=== PATIENT | male | born 1945 | race Caucasian/White ===

== ENCOUNTER 2018-03-30 06:36 | Emergency (ER) | payer MEDICARE, OTHER ==
[2018-03-30] MEDS ORDERED: Acetaminophen/HYDROcodone 325-5 MG Tab ONE (07:00)
--- NOTE | 2018-03-30 07:40 | EDM.PDOC ---
ED HPI GENERAL MEDICAL PROBLEM - General Chief Complaint: General Stated Complaint: FELL Time Seen by Provider: 03/30/18 07:10 Source of Information: Reports: Patient History Limitations: Reports: No Limitations - History of Present Illness INITIAL COMMENTS - FREE TEXT/NARRATIVE: Pt is a 72 years old male with PMH of HTN. He woke up in the morning today and was using bathroom, slipped in the bathroom and fell backwards and hit hisleftflnk aginst the bath tub. C/o of severe pain in the left flank. hurts to take deep breath.No shortness of breath. no breathing difficulties. No nausez or vomiting. rates his pain at 8/10 with deep breathing. Onset: Today, Sudden Onset Date: 03/30/18 Onset Time: 18:00 Duration: Intermittent Location: Reports: Back Quality: Reports: Ache Severity: Severe Improves with: Reports: Rest Worsens with: Reports: Breathing Associated Symptoms: Denies: Confusion, Chest Pain, Cough, Diaphoresis, Fever/ Chills, Headaches, Malaise, Nausea/Vomiting, Rash, Seizure, Shortness of Breath , Syncope, Weakness Left Flank Pain Score (Numeric/FACES): 10 - Related Data Allergies Allergy/AdvReac Type Severity Reaction Status Date / Time No Known Allergies Allergy Verified 03/30/18 07:43 Home Meds: Home Meds Aspirin 81 mg PO DAILY 03/30/18 [History] Lisinopril 10 mg PO DAILY 03/30/18 [History] amLODIPine Besylate [Amlodipine Besylate] 5 mg PO DAILY 03/30/18 [History] atorvaSTATin Calcium [Atorvastatin Calcium] 40 mg PO DAILY 03/30/18 [History] metFORMIN HCl [Metformin HCl] 500 mg PO BID 03/30/18 [History] ED ROS GENERAL - Review of Systems Review Of Systems: See Below Constitutional: Denies: Fever, Chills HEENT: Denies: Rhinitis, Throat Pain Respiratory: Reports: Pleuritic Chest Pain. Denies: Shortness of Breath, Cough , Sputum Cardiovascular: Denies: Chest Pain, Lightheadedness Endocrine: Denies: Fatigue, High Glucose GI/Abdominal: Denies: Abdominal Pain, Distension, Nausea, Vomiting : Reports: Flank Pain. Denies: Dysuria, Frequency, Hematuria Musculoskeletal: Denies: Joint Pain, Joint Swelling Skin: Reports: Bruising. Denies: Pruritis, Rash Neurological: Denies: Confusion, Dizziness, Headache, Numbness, Tingling, Tremors, Change in Speech, Gait Disturbance ED EXAM, GENERAL - Physical Exam Exam: See Below Exam Limited By: No Limitations General Appearance: Alert, WD/WN, No Apparent Distress Eye Exam: Bilateral Eye: EOMI, PERRL Ears: Normal External Exam, Normal Canal, Hearing Grossly Normal, Normal TMs Ear Exam: Bilateral Ear: Auricle Normal, Canal Normal, TM normal Nose: Normal Inspection, Normal Mucosa, No Blood Throat/Mouth: Normal Inspection, Normal Lips, Normal Teeth, Normal Gums, Normal Oropharynx, Normal Voice, No Airway Compromise Head: Atraumatic, Normocephalic Neck: Normal Inspection, Supple, Non-Tender, Full Range of Motion Respiratory/Chest: No Respiratory Distress, Lungs Clear, Normal Breath Sounds, No Accessory Muscle Use, Other (there is superficial epidermal skin bruising noted over the left flank. tender over the posterior left 10,11th and 12 rib area.) Cardiovascular: Normal Peripheral Pulses, Regular Rate, Rhythm, No Edema, No Gallop, No JVD, No Murmur, No Rub Course - Vital Signs Text/Narrative:: Pt has had a fall directly over the left flank. He does appear to have chest wall contusion, will get rib series to evaluate for rib fracture. also he did receive dilaudid 1mg IM for pain. Also will get UA to rule out renal injury asso with fall. Pt rib series does show possible left 11th rib fracture. His UA is negative. Pt reassured that he has 11th rib fracture. Advised to alternate heat nd cold for 24hrs followed by intermittent heat 3-4 times daily. Alternate motrin 600mg with vicodin 5/325 every 4 hrs. rest. Deep breathing exercises 2-3 times daily. Followup with his primary care provider on sunday for recheck. Last Recorded V/S: Last Vital Signs Temp 98.7 F 03/30/18 07:52 Pulse 83 03/30/18 07:52 Resp 16 03/30/18 07:52 BP 131/65 03/30/18 07:52 Pulse Ox 95 03/30/18 07:52 - Orders/Labs/Meds Orders: Active Orders 24 hr Category Date Time Status Ribs 2V w Chest Lt [CR] Stat Exams 03/30/18 07:36 Ordered Labs: Laboratory Tests 03/30/18 Range/Units 07:46 Urine Color Yellow Urine Appearance Clear (CLEAR) Urine pH 5.5 (5.0-8.0) Ur Specific [place] 1.025 (1.003-1.030) Urine Protein Trace H (NEGATIVE) mg/dL Urine Glucose (UA) Negative (NEGATIVE) mg/dL Urine Ketones Trace H (NEGATIVE) mg/dL Urine Occult Blood Negative (NEGATIVE) Urine Nitrite Negative (NEGATIVE) Urine Bilirubin Negative (NEGATIVE) Urine Urobilinogen 0.2 (0.2-1.0) E.U./dL Ur Leukocyte Esterase Trace H (NEGATIVE) Urine RBC Not seen /HPF Urine WBC 5-10 H /HPF Ur Squamous Epith Cells Few /HPF Hyaline Casts Few /HPF Urine Mucus Moderate /HPF Meds: Medications Discontinued Medications Generic Name Dose Route Start Last Admin Trade Name Freq PRN Reason Stop Dose Admin Hydromorphone HCl 1 mg 03/30/18 07:44 03/30/18 07:45 Dilaudid IM 03/30/18 07:45 1 mg ONETIME ONE Administration Departure - Departure Time of Disposition: 08:15 Disposition: Home, Self-Care 01 Condition: Fair Clinical Impression: Rib fracture - Discharge Information *PRESCRIPTION DRUG MONITORING PROGRAM REVIEWED*: Not Applicable *COPY OF PRESCRIPTION DRUG MONITORING REPORT IN PATIENT TIM: Not Applicable Instructions: Acetaminophen; Hydrocodone tablets or capsules, Rib Fracture Referrals: PCP,None [Primary Care Provider] - Forms: ED Department Discharge Care Plan Goals: Alternated heat and cold. for 24 hours. Then heat 6 x day. Do this 10 to 15 minutes of an hour. Alternate motrin 600mg with vicoden every 4 hours. Deep breathing exercising to prevent pneumonia. Expands lungs. - Problem List & Annotations (1) Rib fracture SNOMED Code(s): 88807345 Code(s): S22.39XA - FRACTURE OF ONE RIB, UNSP SIDE, INIT FOR CLOS FX Status : Acute Current Visit: Yes - Problem List Review Problem List Initiated/Reviewed/Updated: Yes - My Orders Last 24 Hours: My Active Orders 03/30/18 07:36 Ribs 2V w Chest Lt [CR] Stat - Assessment/Plan Last 24 Hours: My Active Orders 03/30/18 07:36 Ribs 2V w Chest Lt [CR] Stat Assessment:: left 11th rib fracture Plan: Pt has had a fall directly over the left flank. He does appear to have chest wall contusion, will get rib series to evaluate for rib fracture. also he did receive dilaudid 1mg IM for pain. Also will get UA to rule out renal injury asso with fall. Pt rib series does show possible left 11th rib fracture. His UA is negative. Pt reassured that he has 11th rib fracture. Advised to alternate heat nd cold for 24hrs followed by intermittent heat 3-4 times daily. Alternate motrin 600mg with vicodin 5/325 every 4 hrs. rest. Deep breathing exercises 2-3 times daily. Followup with his primary care provider on sunday for recheck.
[2018-03-30] MEDS ORDERED: HYDROmorphone 2 MG/ML SDV IM ONE (07:44)
--- NOTE | 2018-03-31 11:05 | CR ---
PA CHEST AND LEFT RIBS, 03/30/18 No priors. The heart size is normal. There is calcification of the aortic arch. There are atelectatic changes in both lung bases, left greater than right with eventration of the left hemidiaphragm. The lungs are otherwise clear. No pneumothorax. No pleural effusions. There is degenerative disk disease throughout the thoracic spine. No displaced rib fractures. [id number] [facility]
== END 2018-03-30 08:20 | disposition home or self-care (01) ==
LOC: LB.ED 06:36
DX: S22.32XA Fracture of one rib, left side, initial encounter for closed fracture (principal); W01.10XA Fall on same level from slipping, tripping and stumbling with subsequent striking against unspecified object, initial encounter; Y92.002 Bathroom of unspecified non-institutional (private) residence as the place of occurrence of the external cause; Z79.82 Long term (current) use of aspirin; Z79.899 Other long term (current) drug therapy
CPT/HCPCS: 71101; 81001; 96372; 99284; A9270; J1170